=== PATIENT | female | born 1970 | race Caucasian/White ===

== ENCOUNTER 2017-06-03 21:30 | Emergency (ER) | payer SELFPAY ==
[2017-06-03] MEDS ORDERED: SODIUM CHLORIDE 0.9% 1000ML 1,000 ML IV ONE (22:04)
[2017-06-03 22:08] LABS: HEMATOCRIT 41 % (35-47); MEAN CORPUSCULAR HGB CONC 35.8 gm/dl (32.0-36.0)
[2017-06-03 22:13] LABS: APPEARANCE,URINE Clear; BILIRUBIN,URINE NEGATIVE (NEGATIVE); COLOR,URINE Yellow; GLUCOSE, URINE (UA) NEGATIVE (NEGATIVE); KETONES,URINE NEGATIVE (NEGATIVE); LEUKOCYTE ESTERASE ,URINE NEGATIVE (NEGATIVE); NITRATE,URINE NEGATIVE (NEGATIVE); OCCULT BLOOD,URINE 2+ (NEG-TRACE); PH,URINE 5.5; UROBILINOGEN,URINE 0.2 (0.2-1.0 EU)
[2017-06-03 22:31] LABS: ALBUMIN 3.4 gm/dl (3.4-5.0); BILIRUBIN,DIRECT 0.2 mg/dl (0.0-0.2); CALCIUM 8.2 mg/dl (8.5-10.1); POTASSIUM 3.7 mMol/L (3.5-5.1); THYROID STIMULATING HORMONE 0.549 uIU/ml (0.358-3.740)
[2017-06-03 22:44] LABS: MEAN CORPUSCULAR VOLUME 102 fL (81-99)
[2017-06-03] MEDS ORDERED: LORAZEPAM 0.5 MG TAB PO ONE (22:44)
[2017-06-03] MEDS ORDERED: LORAZEPAM 0.5 MG TAB ONE (22:46)
[2017-06-03 22:55] VITALS: TEMP 98.7
[2017-06-03 22:57] LABS: AMPHETAMINES NEGATIVE (NEGATIVE); METHADONE NEGATIVE (NEGATIVE); OPIATES(OP13) NEGATIVE (NEGATIVE); OXYCODONE(OXY) NEGATIVE (NEGATIVE); PROPOXYPHENE(PPX) NEGATIVE (NEGATIVE); RBC,URINE 0-2 (0-3AV/HPF); TRICYCLIC ANTIDEPRESSANTS NEGATIVE (NEGATIVE); WBC,URINE 0-3 (0-5AV/HPF)
[2017-06-03 23:28] LABS: LYMPHOCYTES % (MANUAL) 25 % (10-50)
[2017-06-03 23:29] LABS: ANISOCYTOSIS SLIGHT AMT; BASOPHILS % (MANUAL) 2 % (0-3); EOSINOPHILS % (MANUAL) 2 % (0-9)
[2017-06-04 00:28] VITALS: BP 132/90; PULSE 99; RESP 16; O2SAT 95
== END 2017-06-04 01:23 | disposition other institution (70) | DRG 897 ==
LOC: ED 21:30
DX: F10.920 Alcohol use, unspecified with intoxication, uncomplicated (principal); Y90.8 Blood alcohol level of 240 mg/100 ml or more
CPT/HCPCS: 36415; 80048; 80076; 80305; 80307; 81001; 84443; 85007; 85027; 99284

== ENCOUNTER 2017-06-07 03:09 | Emergency (ER) | payer SELFPAY ==
[2017-06-07 03:58] LABS: ALBUMIN 3.1 gm/dl (3.4-5.0); CALCIUM 8.9 mg/dl (8.5-10.1); POTASSIUM 3.7 mMol/L (3.5-5.1)
[2017-06-07 04:17] VITALS: TEMP 97.7
[2017-06-07] MEDS ORDERED: HYDROXYZINE HYDROCHLORIDE 25 MG/ML SOL IM ONE (04:32)
[2017-06-07] MEDS ORDERED: DIPHENHYDRAMINE 25 MG CAP PO ONE (04:42)
[2017-06-07] MEDS ORDERED: DIPHENHYDRAMINE 25 MG CAP ONE (04:43)
[2017-06-07 05:18] VITALS: BP 149/99; PULSE 76; RESP 18; O2SAT 97
== END 2017-06-07 05:13 | disposition home or self-care (01) | DRG 434 ==
LOC: ED 03:09 → SUPCPDRO 03:09 → ED 05:13
DX: K70.10 Alcoholic hepatitis without ascites (principal)
CPT/HCPCS: 80053; 99283